=== PATIENT | male | born 1990 | race Two or more races ===

== ENCOUNTER 2023-02-16 10:39 | Outpatient (REF) | payer MEDICAID, SELFPAY | END 2023-02-16 10:40 | disposition home or self-care (01) | LOC: HO.HHCL 10:39 | PROVIDERS: Visit Provider Internal Medicine Geriatric Medicine | DX: Z13.1 Encounter for screening for diabetes mellitus (principal) | CPT/HCPCS: 36415; 80048; 83036 ==